=== PATIENT | male | born 1995 ===

== ENCOUNTER → 2017-06-16 | Outpatient (CLI) | payer OTHER ==
[~2017-06-16] MED LIST: GADOBENATE 529MG/1ML 15ML VIAL IVP ONE
--- NOTE | 2017-06-16 08:23 | RADIOLOGY IMAGING REPORT ---
FACILITY: [facility] - [place] PATIENT NAME: Herb Blank : 1995 MR: [id number] V: [id number] EXAM DATE: ORDERING PHYSICIAN: ELENI CUTLER TECHNOLOGIST: Location: [facility] - [place] Patient: Herb Blank : 1995 Visit/Account:[id number] Date of Sevice: 06/16/2017 Technique: ORBITS FOREIGN BODY 1 VIEW HISTORY: Rule out foreign body Comparison studies: None FINDINGS: No radiodense foreign body. The osseous structures are unremarkable. Visualized paranasal sinuses are clear. IMPRESSION: 1. No radiodense foreign body. Report Dictated By: Leno Marion DO at 06/16/2017 8:17 AM Report E-Signed By: Leno Marion DO at 06/16/2017 8:18 AM WSN:[id number]
--- NOTE | 2017-06-16 10:25 | RADIOLOGY IMAGING REPORT ---
[place] [facility] [place] Herb Blank : 1995 MR: [id number] V: [id number] EXAM DATE: ORDERING PHYSICIAN: ELENI CUTLER TECHNOLOGIST: [place] [facility] [place]b [place] : 1995 Visit/Account:[id number] Date of Sevice: 06/16/2017 BRAIN W W/O CONTRAST Provided history: Extremity paresthesias Additional pertinent history: none TECHNIQUE: Multiplanar multisequence brain MRI was performed without and with intravenous contrast Contrast dose: 15 mL of MultiHance. Additional focused sequences: none COMPARISON STUDIES: None FINDINGS: Brain volume: Normal Acute ischemia: None Chronic cortical and ganglionic ischemia: none significant Hemorrhage: None Masses / edema: None White matter lesions : Normal Vessels: Normal Extra-axial: None Calvarium / scalp: Negative Skull base / infratemporal fossa: negative Visualized sinuses / orbits / upper neck: negative IMPRESSION: Normal MR of the brain. No evidence of mass, acute ischemia or hemorrhage. Report Dictated By: Chuck Santos MD at 06/16/2017 10:17 AM Report E-Signed By: Chuck Santos MD at 06/16/2017 10:20 AM WSN:[id number]
--- NOTE | 2017-06-16 10:34 | RADIOLOGY IMAGING REPORT ---
FACILITY: [facility] - [place] PATIENT NAME: Herb Blank : 1995 MR: [id number] V: [id number] EXAM DATE: ORDERING PHYSICIAN: ELENI CUTLER TECHNOLOGIST: Location: [facility] Patient: Herb Blank : 1995 Visit/Account:[id number] Date of Sevice: 06/16/2017 C SPINE W W/O CONTRAST Provided history: Extremity paresthesias. Additional pertinent history: none TECHNIQUE: Multiplanar multisequence cervical MRI was performed without and with intravenous contr ast Contrast dose: 15 mL of MultiHance. COMPARISON STUDIES: none FINDINGS: Extra-spinal soft tissues: Negative Cranio-cervical junction / included posterior fossa: normal Alignment: normal Osseous signal pattern: none Cervical cord: negative Disc Spaces: C2-C3: The disk reveals mild narrowing and degeneration. No evidence of disk herniation or cent ral stenosis. No significant foraminal stenosis. C3-C4: The disk reveals mild narrowing and degeneration. Minor symmetric endplate hypertrophy. No herniation or central stenosis. No significant foraminal stenosis. C4-C5: The disk reveals mild narrowing and degeneration. Mild broad based asymmetric left later alizing disc-osteophyte complex without herniation or central stenosis. Left lateralizing end-plate spurs, facet and UV joint hypertrophy result in minor narrowing of the left foramen. Right foramen n ormal. C5-C6: The disk reveals mild narrowing and degeneration. Mild symmetric endplate hypertrophy. No herniation or central stenosis. No significant foraminal stenosis. C6-C7: Preserved disk height with abnormal low T2 signal indicating degeneration. Minor symmetric endplate hypertrophy. No herniation or central stenosis. Lateralization of end-plate spurs, bilate ral facet and UV joint hypertrophy results in only mild narrowing of the foramina. C7-T1: Disk height and signal pattern normal. No evidence of disk herniation or central stenosis . No significant foraminal stenosis. Upper T spine: negative IMPRESSION: 1. Normal cervical cord. 2. Relatively mild degenerative changes are defined above. No moderate or high-grade central stenos is or significant foraminal stenosis. Report Dictated By: Chuck Santos MD at 06/16/2017 10:25 AM Report E-Signed By: Chuck Santos MD at 06/16/2017 10:30 AM WSN:[id number]
== END ==
LOC: MRI 07:33
PROVIDERS: ATTEND Pediatrics Adolescent Medicine
DX: M50.323 Other cervical disc degeneration at C6-C7 level (principal); R20.2 Paresthesia of skin
CPT/HCPCS: 70030; 70553; 72156; A9577

== ENCOUNTER → 2017-08-04 | Outpatient (CLI) | payer OTHER ==
--- NOTE | 2017-08-04 09:00 | RADIOLOGY IMAGING REPORT ---
FACILITY: [facility] - [place] PATIENT NAME: Herb Blank : 1995 MR: [id number] V: [id number] EXAM DATE: ORDERING PHYSICIAN: DANIEL CARDONA TECHNOLOGIST: Location: [facility] - [place] Patient: Herb Blank : 1995 Visit/Account:[id number] Date of Sevice: 08/04/2017 EXAMINATION: MRI Lumbar spine without intravenous contrast HISTORY: Paresthesia. COMPARISON: None. TECHNIQUE: Multi-planar, multi-sequence lumbar spine MRI was performed without intravenous contrast administration. FINDINGS: Alignment: Normal. Vertebral marrow signal: Negative. Distal thoracic cord: Negative. Conus: negative, terminates at T12 Cauda equina: Negative. Paravertebral soft tissues: Negative. Visualized abdominal and pelvic structures: Negative. Disc Spaces: Lower thoracic spine: Negative. L1-2: Negative. L2-3: Negative. L3-4: Mild disc bulge without stenosis. L4-5: Negative. L5-S1: Negative. IMPRESSION: Mild disc bulge at L3-L4 with no significant stenosis. Otherwise unremarkable lumbar spine MRI. Report Dictated By: Rakan Gee MD at 08/04/2017 8:50 AM Report E-Signed By: Rakan Gee MD at 08/04/2017 8:57 AM WSN:[id number]
== END ==
LOC: MRI 01:28
PROVIDERS: ATTEND Psychiatry & Neurology Neurology
DX: M48.07 Spinal stenosis, lumbosacral region (principal)
CPT/HCPCS: 72148